=== PATIENT | male | born 1960 | race Two or more races ===

== ENCOUNTER 2016-05-10 20:33 | Observation (INO) | payer MEDICARE ==
[~2016-05-10] VITALS: Ht 175.3 cm; Wt 113.4 kg
[2016-05-10 21:35] LABS: Basophils # (auto) 0 uL; Basophils % (auto) 0.4 % (0.0-2.0); Eosinophils # (auto) 0.3 uL; Eosinophils % (auto) 2.7 % (0.0-7.0); Hemoglobin 10.4 g/dL (13.5-17.5); Lymphocytes # (auto) 2.1 uL; Lymphocytes % (auto) 22.1 % (10.0-50.0); Mean Corpuscular Hemoglobin 31.7 pg (28.0-32.0); Mean Corpuscular Hgb Conc. 33.6 g/dL (32.0-36.0); Mean Corpuscular Volume 94.3 fL (80.0-100.0); Mean Platelet Volume 9.1 fL (7.4-10.4); Monocytes # (auto) 0.4 uL; Monocytes % (auto) 4.5 % (0.0-12.0); Neutrophils # (auto) 6.7 uL; Neutrophils % (auto) 70.3 % (37.0-80.0); Platelet Count (auto) 313 10^3/uL (140-450); Red Cell Distribution Width 12.8 % (11.6-16.0); White Blood Cell 9.6 10^3/uL (4.4-10.8)
[2016-05-10 21:54] LABS: Albumin 3.7 g/dL (3.4-5.0); BUN/Creatinine Ratio 5.1; Bilirubin, Total 0.4 mg/dL (0.2-1.0); INR 1.11 (0.9-1.15); Prothrombin Time 11.4 sec (9.37-12.3); Total Protein 8.1 g/dL (6.4-8.2)
[2016-05-10] MEDS ORDERED: HYDROcodone-ACET 10/325MG TAB PO ONE (22:30)
[2016-05-11 03:03] VITALS: BP 150/67
== END 2016-05-11 05:38 | disposition left against medical advice (07) | DRG 316 ==
LOC: ER 20:38 → OVERFLOW 05-11 03:52 → ER 05-11 05:38
PROVIDERS: ADMIT Emergency Medicine; ATTEND Emergency Medicine
DX: T82.838A Hemorrhage due to vascular prosthetic devices, implants and grafts, initial encounter (principal); I10 Essential (primary) hypertension; E11.9 Type 2 diabetes mellitus without complications
CPT/HCPCS: 36415; 80053; 85025; 85610; 85730; 99285; G0378

== ENCOUNTER 2020-10-02 21:44 | Inpatient (IN) | payer MEDICARE ==
[~2020-10-02] VITALS: Ht 167.6 cm; Wt 103.8 kg
[2020-10-02 22:08] VITALS: BP 95/56
[2020-10-02] MEDS ORDERED: MORPHINE SULFATE INJECTION 2 MG/2 ML SYRG IV PRN (22:45)
[2020-10-02] MEDS ORDERED: NITROGLYCERIN 0.4 MG SL TAB SL PRN (22:45)
[2020-10-02] MEDS ORDERED: DEXTROSE (50%) 50ML SYRG IV PRN (23:00)
[2020-10-02 23:28] LABS: Hematocrit 30.1 % (41.0-53.0); Hemoglobin 10.7 g/dL (13.5-17.5); Mean Corpuscular Hemoglobin 32.8 pg (28.0-32.0); Mean Corpuscular Hgb Conc. 35.5 g/dL (32.0-36.0); Mean Corpuscular Volume 92.5 fL (80.0-100.0); Red Blood Cells 3.25 10^6/uL (4.5-5.90); Red Cell Distribution Width 13.3 % (11.8-14.3); White Blood Cell 15.1 10^3/uL (4.4-10.8)
[2020-10-02] MEDS ORDERED: cefTRIAXone 1GM/50ML D5W 50 ML IV ONE (23:30)
[2020-10-02 23:48] LABS: Calcium 9.3 mg/dL (8.5-10.1); Chloride 97 mmol/L (98-107); Sodium 133 mmol/L (136-145)
[2020-10-02 23:56] LABS: Alanine Aminotransferase 21 U/L (16-61); Albumin 2.4 g/dL (3.4-5.0); Alkaline Phosphatase 134 U/L (45-117); Anion Gap 15 (5-15); Aspartate Aminotransferase 18 U/L (15-37); BUN/Creatinine Ratio 3.9; Bilirubin, Total 0.4 mg/dL (0.2-1.0); Blood Urea Nitrogen 44 mg/dL (7-18); Carbon Dioxide 21 mmol/L (21-32); GFR African American 6 mL/min; GFR Non-African American 5 mL/min; Glucose 184 mg/dL (74-106); Total Protein 6.7 g/dL (6.4-8.2)
[2020-10-03] VITALS (7 sets, daily range): BP systolic 72–121; BP diastolic 33–61
[2020-10-03 00:10] LABS: Basophils % (manual) 0 (0.0-2.0); Blast Cells 0; Eosinophils % (manual) 0 (0-7); Myelocytes % 0; Promyelocytes % 0; Reactive Lymphocytes 0
[2020-10-03 00:11] LABS: Potassium 2.5 mmol/L (3.5-5.1)
[2020-10-03] MEDS: CARVEDILOL 12.5 MG TAB PO SCH ×3 (00:15→21:54)
[2020-10-03] MEDS ORDERED: POTASSIUM CHL 20MEQ/100ML 100 ML IV ONE ×2 (01:00→08:00)
[2020-10-03 01:17] LABS: Band Neutrophils % (manual) 6; Lymphocytes % (manual) 26 (10.0-50.0); Metamyelocytes % 2; Monocytes % (manual) 5 (0-12)
[2020-10-03] MEDS: SOD CHL 0.45% 1,000 ML IV SCH ×3 (01:32→23:15)
[2020-10-03] MEDS ORDERED: CARV25TA55 PO (02:33)
[2020-10-03] MEDS ORDERED: HYDR-4298 PO (02:33)
[2020-10-03] MEDS ORDERED: INSU100I4 SC (02:33)
[2020-10-03] MEDS ORDERED: NIFE1TAB30 PO (02:33)
[2020-10-03] MEDS ORDERED: TERA2CAP45 PO (02:33)
[2020-10-03] MEDS ORDERED: DOXY100C2 PO (02:33)
[2020-10-03] MEDS ORDERED: CINA30TA2 PO (02:33)
[2020-10-03] MEDS ORDERED: INSLANTI SC (02:33)
[2020-10-03] MEDS: hydrALAZINE HCL 25 MG TAB PO SCH ×3 (05:27→21:53)
[2020-10-03] MEDS ORDERED: hydrALAZINE HCL 25 MG TAB PO SCH (06:00)
[2020-10-03] MEDS: ACCU-CHEK COMFORT CURVE STRIP VI SCH ×4 (06:15→22:08)
[2020-10-03] MEDS: InsuLIN REG 1unit/0.01ml Soln (100units/ml) SC SCH ×4 (06:15→22:14)
[2020-10-03] MEDS ORDERED: cefTRIAXone 1GM/50ML D5W 50 ML IV SCH (09:00)
[2020-10-03] MEDS: CLOPIDOGREL BISULFATE 75 MG TAB PO SCH (09:20)
[2020-10-03] MEDS: DOXYCYCLINE 100 MG TAB/CAP PO SCH ×2 (09:20→22:11)
[2020-10-03] MEDS ORDERED: BREO ELLIPTA PO SCH (10:00)
[2020-10-03] MEDS ORDERED: NIFEdipine ER 30 MG TAB PO SCH (10:00)
[2020-10-03] MEDS ORDERED: CARVEDILOL 12.5 MG TAB PO SCH (10:00)
[2020-10-03] MEDS ORDERED: LANTHANUM CARBONATE 1000 MG PO SCH (10:00)
[2020-10-03] MEDS ORDERED: KETOCONAZOLE 200 MG PO SCH (10:00)
[2020-10-03] MEDS ORDERED: CINACALCET 60 MG PO SCH (10:00)
[2020-10-03] MEDS: NIFEdipine ER 30 MG TAB PO SCH ×2 (11:26→21:55)
[2020-10-03] MEDS: cefTRIAXone 1GM/50ML D5W 50 ML IV SCH (11:29)
[2020-10-03] MEDS ORDERED: POTASSIUM CHL 20 Meq TABLET PO ONE (11:45)
[2020-10-03] MEDS: RENAVITE PO SCH (12:31)
[2020-10-03] MEDS ORDERED: INSULIN LANTUS (GLARGINE) 1 /0.01ml (100units/ml) SC SCH ×2 (18:00→22:00)
[2020-10-03] MEDS: TERAZOSIN HCL 1 MG CAP PO SCH (21:55)
[2020-10-03] MEDS: INSULIN LANTUS (GLARGINE) 1 /0.01ml (100units/ml) SC SCH (22:14)
[2020-10-04] VITALS (8 sets, daily range): BP systolic 106–149; BP diastolic 51–83
[2020-10-04] MEDS: hydrALAZINE HCL 25 MG TAB PO SCH ×3 (06:11→22:00)
[2020-10-04] MEDS: ACCU-CHEK COMFORT CURVE STRIP VI SCH ×4 (06:12→21:27)
[2020-10-04 06:35] LABS: BUN/Creatinine Ratio 3.9; Calcium 9.1 mg/dL (8.5-10.1)
[2020-10-04] MEDS: InsuLIN REG 1unit/0.01ml Soln (100units/ml) SC SCH ×4 (06:51→22:00)
[2020-10-04 07:02] LABS: Potassium 2.7 mmol/L (3.5-5.1)
[2020-10-04] MEDS ORDERED: POTASSIUM CHL 20MEQ/100ML 100 ML IV ONE ×2 (07:15→13:15)
[2020-10-04] MEDS: cefTRIAXone 1GM/50ML D5W 50 ML IV SCH (09:00)
[2020-10-04] MEDS: CARVEDILOL 12.5 MG TAB PO SCH ×2 (09:31→22:00)
[2020-10-04] MEDS: CLOPIDOGREL BISULFATE 75 MG TAB PO SCH (09:32)
[2020-10-04] MEDS: DOXYCYCLINE 100 MG TAB/CAP PO SCH ×2 (09:33→22:00)
[2020-10-04] MEDS: NIFEdipine ER 30 MG TAB PO SCH ×2 (09:33→22:00)
[2020-10-04] MEDS: RENAVITE PO SCH (10:00)
[2020-10-04] MEDS ORDERED: KETOCONAZOLE 200 MG PO SCH (10:00)
[2020-10-04] MEDS ORDERED: POTASSIUM EFFERVESENT TAB 25 MEQ PO ONE (19:15)
[2020-10-04] MEDS: TERAZOSIN HCL 1 MG CAP PO SCH (22:00)
[2020-10-04] MEDS: INSULIN LANTUS (GLARGINE) 1 /0.01ml (100units/ml) SC SCH (22:00)
[2020-10-04] MEDS: SOD CHL 0.45% 1,000 ML IV SCH (23:15)
[2020-10-05] VITALS: BP 110/53
[2020-10-05 04:00] VITALS: BP 127/58
[2020-10-05] MEDS: hydrALAZINE HCL 25 MG TAB PO SCH ×3 (05:59→21:37)
[2020-10-05] MEDS: ACCU-CHEK COMFORT CURVE STRIP VI SCH ×4 (06:21→21:23)
[2020-10-05] MEDS: InsuLIN REG 1unit/0.01ml Soln (100units/ml) SC SCH ×4 (06:53→21:22)
[2020-10-05 08:00] VITALS: BP 140/48
[2020-10-05] MEDS: RENAVITE PO SCH (10:00)
[2020-10-05 10:34] LABS: Albumin 2.7 g/dL (3.4-5.0); Calcium 8.8 mg/dL (8.5-10.1); Potassium 3.4 mmol/L (3.5-5.1)
[2020-10-05 10:37] LABS: BUN/Creatinine Ratio 3.9; Bilirubin, Total 0.4 mg/dL (0.2-1.0); Total Protein 7.3 g/dL (6.4-8.2)
[2020-10-05] MEDS: NIFEdipine ER 30 MG TAB PO SCH ×2 (11:17→23:45)
[2020-10-05] MEDS: CARVEDILOL 12.5 MG TAB PO SCH ×2 (11:18→21:38)
[2020-10-05] MEDS: DOXYCYCLINE 100 MG TAB/CAP PO SCH ×2 (11:18→21:33)
[2020-10-05] MEDS: CLOPIDOGREL BISULFATE 75 MG TAB PO SCH (11:19)
[2020-10-05] MEDS: cefTRIAXone 1GM/50ML D5W 50 ML IV SCH (11:29)
[2020-10-05 12:30] VITALS: BP 139/42
[2020-10-05 15:40] VITALS: BP 129/49
[2020-10-05] MEDS ORDERED: POTASSIUM EFFERVESENT TAB 25 MEQ PO ONE (17:00)
[2020-10-05] MEDS: INSULIN LANTUS (GLARGINE) 1 /0.01ml (100units/ml) SC SCH (21:22)
[2020-10-05] MEDS: TERAZOSIN HCL 1 MG CAP PO SCH (21:36)
[2020-10-05 22:00] VITALS: BP 125/48
[2020-10-05] MEDS: SOD CHL 0.45% 1,000 ML IV SCH (23:15)
[2020-10-06] VITALS (9 sets, daily range): BP systolic 99–147; BP diastolic 49–79
[2020-10-06] MEDS: hydrALAZINE HCL 25 MG TAB PO SCH ×2 (05:13→14:00)
[2020-10-06] MEDS: ACCU-CHEK COMFORT CURVE STRIP VI SCH ×3 (06:15→17:00)
[2020-10-06] MEDS: InsuLIN REG 1unit/0.01ml Soln (100units/ml) SC SCH ×3 (06:19→17:00)
[2020-10-06 06:49] LABS: Basophils # (auto) 0.1 10 ^3/uL (0-0.2); Basophils % (auto) 1.2 % (0.0-2.0); Eosinophils # (auto) 0.2 10 ^3/uL (0-0.8); Hemoglobin 9.6 g/dL (13.5-17.5); Lymphocytes # (auto) 1.6 10 ^3/uL (0.4-5.4); Lymphocytes % (auto) 19.8 % (10.0-50.0); Mean Corpuscular Hemoglobin 33.2 pg (28.0-32.0); Mean Corpuscular Hgb Conc. 35.8 g/dL (32.0-36.0); Mean Corpuscular Volume 92.8 fL (80.0-100.0); Monocytes # (auto) 0.4 10 ^3/uL (0-1.3); Monocytes % (auto) 5.3 % (0.0-12.0); Neutrophils # (auto) 5.9 10 ^3/uL (1.6-8.6); Neutrophils % (auto) 70.7 % (37.0-80.0); Nucleated Red Blood Cells % 0.1 %; White Blood Cell 8.3 10^3/uL (4.4-10.8)
[2020-10-06 07:06] LABS: Potassium 3.2 mmol/L (3.5-5.1)
[2020-10-06 07:12] LABS: Calcium 8.8 mg/dL (8.5-10.1)
[2020-10-06] MEDS ORDERED: POTASSIUM CHL 20MEQ/100ML 100 ML IV ONE (08:30)
[2020-10-06] MEDS: RENAVITE PO SCH (10:00)
[2020-10-06] MEDS: CARVEDILOL 12.5 MG TAB PO SCH (10:00)
[2020-10-06] MEDS ORDERED: KETOCONAZOLE 200 MG PO SCH (10:00)
[2020-10-06] MEDS: cefTRIAXone 1GM/50ML D5W 50 ML IV SCH (10:14)
[2020-10-06] MEDS: NIFEdipine ER 30 MG TAB PO SCH (10:21)
[2020-10-06] MEDS: CLOPIDOGREL BISULFATE 75 MG TAB PO SCH (10:22)
[2020-10-06] MEDS: DOXYCYCLINE 100 MG TAB/CAP PO SCH (10:22)
[2020-10-06] MEDS ORDERED: CALCIUM ACETATE 667 MG CAP PO SCH (18:00)
[2020-10-06] MEDS ORDERED: CLOP75TA28 PO (20:26)
[2020-10-06] MEDS ORDERED: POTA-220 PO (20:26)
[2020-10-06] MEDS ORDERED: HYDR25TA87 PO (20:26)
[2020-10-06] MEDS ORDERED: ATOR20TA50 PO (20:26)
[2020-10-06] MEDS ORDERED: ATORVASTATIN 20 MG TAB PO SCH (22:00)
[2020-10-06] MEDS ORDERED: hydrALAZINE HCL 25 MG TAB PO SCH (22:00)
[2020-10-07] MEDS ORDERED: POTASSIUM CHL 20 Meq TABLET PO SCH (10:00)
== END 2020-10-07 00:10 | disposition home or self-care (01) | DRG 91 ==
LOC: WEST WING 21:44 → TELE-WESTW 23:37
PROVIDERS: ADMIT Specialist; ATTEND Specialist
PROC: 3E1M39Z Irrigation of Peritoneal Cavity using Dialysate, Percutaneous Approach (ICD-10-PCS; 2020-10-04)
PROC: 3E1M39Z Irrigation of Peritoneal Cavity using Dialysate, Percutaneous Approach (ICD-10-PCS; 2020-10-05)
PROC: 05HB33Z Insertion of Infusion Device into Right Basilic Vein, Percutaneous Approach (ICD-10-PCS; principal; 2020-10-06)
PROC: B54MZZA Ultrasonography of Right Upper Extremity Veins, Guidance (ICD-10-PCS; 2020-10-06)
DX: G92 Toxic encephalopathy (principal); N18.6 End stage renal disease; I13.2 Hypertensive heart and chronic kidney disease with heart failure and with stage 5 chronic kidney disease, or end stage renal disease; M86.8X7 Other osteomyelitis, ankle and foot; E11.52 Type 2 diabetes mellitus with diabetic peripheral angiopathy with gangrene; E66.2 Morbid (severe) obesity with alveolar hypoventilation; E86.1 Hypovolemia; E87.6 Hypokalemia; D63.1 Anemia in chronic kidney disease; E11.22 Type 2 diabetes mellitus with diabetic chronic kidney disease; E78.5 Hyperlipidemia, unspecified; Z66 Do not resuscitate; I50.9 Heart failure, unspecified; Z20.822 Contact with and (suspected) exposure to COVID-19; E11.69 Type 2 diabetes mellitus with other specified complication; E11.621 Type 2 diabetes mellitus with foot ulcer; L97.529 Non-pressure chronic ulcer of other part of left foot with unspecified severity; R79.89 Other specified abnormal findings of blood chemistry; D72.829 Elevated white blood cell count, unspecified; S91.109A Unspecified open wound of unspecified toe(s) without damage to nail, initial encounter; X58.XXXA Exposure to other specified factors, initial encounter; Z68.37 Body mass index [BMI] 37.0-37.9, adult; Z91.11 Patient's noncompliance with dietary regimen; Y93.89 Activity, other specified; Y92.89 Other specified places as the place of occurrence of the external cause; Y99.8 Other external cause status; Z83.3 Family history of diabetes mellitus; Z82.49 Family history of ischemic heart disease and other diseases of the circulatory system; Z79.4 Long term (current) use of insulin; Z86.73 Personal history of transient ischemic attack (TIA), and cerebral infarction without residual deficits; Z89.511 Acquired absence of right leg below knee; Z89.611 Acquired absence of right leg above knee; Z99.2 Dependence on renal dialysis; Z99.3 Dependence on wheelchair
CPT/HCPCS: 36415; 70450; 71045; 73700; 73718; 80048; 80053; 82962; 84484; 85007; 85025; 85027; 85652; 86141; 87081; 87426; 93306; 93886; 93926; G0378; J0696; J1815; J3480